=== PATIENT | male | born 1985 | race Caucasian/White ===

== ENCOUNTER → 2021-10-12 | Outpatient (CLI) | payer OTHER | LOC: COL.RAD 08:44 | DX: N35.819 Other urethral stricture, male, unspecified site (principal) | CPT/HCPCS: Q9967 ==

== ENCOUNTER 2022-01-14 13:25 | Day surgery (SDC) | payer OTHER ==
[~2022-01-14] VITALS: Ht 182.9 cm; Wt 90.0 kg
[2022-01-14] MEDS ORDERED: COLACE 100100 MG/CAP PO (13:55)
[2022-01-14 15:31] VITALS: BP 124/81; PULSE 76; TEMP 98.7
[2022-01-14 16:25] VITALS: BP 132/83; PULSE 76; TEMP 97.2
[2022-01-14 16:40] VITALS: BP 118/80; PULSE 72
[2022-01-14 16:55] VITALS: BP 121/83; PULSE 76
[2022-01-14 17:00] VITALS: TEMP 97.9
[2022-01-14 17:10] VITALS: BP 118/82; PULSE 85
--- NOTE | 2022-01-14 17:20 | NUR ---
1625 RETURNS TO ROOM 5 PER CART. AWAKE, ALERT. RESP CLEAR, SPONTANEOUS. VITAL SIGNS OBTAINED. PATIENT DENIES PAIN. RONDON CATHETER PATENT, CONNECTED TO LEG BAG. YELLOW URINE RETURNED. DENIES DISCOMFORT 1645 TOLERATES PO CRACKER AND JUICE WITHOUT NAUSEA. 1700 DISCHARGE INSTRUCTIONS REVIEWED WITH PATIENT. PATIENT INSTRUCTED ON HOW TO REMOVE RONDON CATHETER ON MONDAY MORNING. PATIENT VERBALIZES UNDERSTANDING. COPY OF INSTRUCTIONS PROVIDEDIN DISCHARGE FOLDER. 1712 SITS ON EDGE OF CART, DRESSES SELF
== END 2022-01-14 17:20 | disposition home or self-care (01) ==
LOC: SDCO 13:25
DX: T83.091A Other mechanical complication of indwelling urethral catheter, initial encounter (principal); Y73.8 Miscellaneous gastroenterology and urology devices associated with adverse incidents, not elsewhere classified; Z87.448 Personal history of other diseases of urinary system
CPT/HCPCS: J0690; J1940; J2405; J2704; J3010; J7120

== ENCOUNTER 2022-08-30 08:42 | Day surgery (SDC) | payer BC ==
[2022-08-30] VITALS (7 sets, daily range): BP systolic 113–126; BP diastolic 72–83; PULSE 66–84; TEMP 97.5–97.8
[~2022-08-30] VITALS: Ht 182.9 cm; Wt 91.7 kg
[~2022-08-30 08:42] MED LIST: COLACE 100100 MG/CAP PO
[2022-08-30] MEDS ORDERED: PYRIDIUM 100MG100 MG PO (12:31)
--- NOTE | 2022-08-30 13:55 | NUR ---
1245 RETURNS TO ROOM 7 PER CART. AWAKE, ALERT. RESP UNLABORED. HOB ELEVATED 40 DEGREES. VITAL SIGNS OBTAINED. SUPRAPUBIC CATHETER IN PLACE. SMALL AMOUNT OF LIGHT RED DRAINAGE OBSERVED ON GAUZE, NO INCREASE FROM PREVIOUS MARKING. DENIES PAIN, OR URINARY URGENCY. IN ROOM. CALL LIGHT AT SIDE. 1300 TOLERATES PO JUICE WITHOUT NAUSEA. 1315 REQUESTS AND TOLERATES PO MUFFIN. DENIES PAIN. NO CHANGE IN DRAINAGE. 1333 DISCHARGE INSTRUCITONS REVIEWED. PATIENT AND VERBALIZE UNDERSTANDING. COPY PROVIDED IN DISCHARGE FOLDER. CATHETER PLUG, DRAIN SPONGES AND MEDIPORE TAPE ALSO PROVIDED TO PATIENT FOR DISCHARGE 1345 AMBULATES TO BATHROOM AFTER DRESSING SELFE. EMPTIES LEG BAG. URINE CLEAR, YELLOW
== END 2022-08-30 13:55 | disposition home or self-care (01) ==
LOC: SDCO 08:42
DX: N35.011 Post-traumatic bulbous urethral stricture (principal); F17.290 Nicotine dependence, other tobacco product, uncomplicated; Z28.310 Unvaccinated for COVID-19
CPT/HCPCS: C1769; J0690; J1100; J2405; J2704; J2765; J3010; J7120